=== PATIENT | male | born 1960 | race Two or more races ===

== ENCOUNTER 2018-12-25 18:09 | Emergency (ER) | payer SELFPAY ==
[~2018-12-25] VITALS: Ht 175.3 cm; Wt 72.6 kg
[2018-12-25 19:47] VITALS: BP 128/111
[2018-12-25 21:29] LABS: Basophils # (auto) 0.1 uL; Eosinophils # (auto) 0.2 uL; Mean Corpuscular Hemoglobin 35.2 pg (28.0-32.0); Mean Corpuscular Hgb Conc. 34.4 g/dL (32.0-36.0); White Blood Cell 5.2 10^3/uL (4.4-10.8)
[2018-12-25 21:33] LABS: Albumin 3.7 g/dL (3.4-5.0); Anion Gap 6 (5-15); Blood Urea Nitrogen 10 mg/dL (7-18); Calcium 8.4 mg/dL (8.5-10.1); Carbon Dioxide 28 mmol/L (21-32); Chloride 108 mmol/L (98-107); Glucose 92 mg/dL (74-106); Magnesium 2.5 mg/dL (1.6-2.6); Potassium 4.5 mmol/L (3.5-5.1); Sodium 142 mmol/L (136-145)
[2018-12-25 21:34] LABS: Basophils % (auto) 1.8 % (0.0-2.0); Eosinophils % (auto) 3.8 % (0.0-7.0); Hematocrit 49.9 % (41.0-53.0); Hemoglobin 17.2 g/dL (13.5-17.5); Lymphocytes # (auto) 1.3 uL; Lymphocytes % (auto) 23.9 % (10.0-50.0); Mean Corpuscular Volume 102.5 fL (80.0-100.0); Monocytes # (auto) 0.5 uL; Monocytes % (auto) 9.6 % (0.0-12.0); Neutrophils # (auto) 3.2 uL; Neutrophils % (auto) 60.9 % (37.0-80.0); Nucleated Red Blood Cells % 0.2 %; Platelet Count (auto) 217 10^3/uL (140-450); Red Blood Cells 4.87 10^6/uL (4.5-5.90); Red Cell Distribution Width 13.6 % (11.8-14.3)
[2018-12-25 21:38] LABS: Alanine Aminotransferase 59 U/L (16-61); Alkaline Phosphatase 75 U/L (45-117); Aspartate Aminotransferase 44 U/L (15-37); Bilirubin, Total 0.3 mg/dL (0.2-1.0); GFR African American 110 mL/min; GFR Non-African American 91 mL/min
[2018-12-25 21:41] LABS: Amylase 45 U/L (25-115); Lipase 137 U/L (73-393)
[2018-12-25 21:52] LABS: INR 0.94 (0.9-1.15); Prothrombin Time 10.2 sec (9.06-12.60)
== END 2018-12-26 00:21 | disposition left against medical advice (07) ==
LOC: ER 18:12
DX: R07.89 Other chest pain (principal); K80.20 Calculus of gallbladder without cholecystitis without obstruction; Z53.29 Procedure and treatment not carried out because of patient's decision for other reasons; F17.210 Nicotine dependence, cigarettes, uncomplicated; F15.10 Other stimulant abuse, uncomplicated
CPT/HCPCS: 36415; 71046; 74176; 80053; 82150; 83690; 83735; 83880; 84484; 85025; 85610; 85730; 93005; 94761